=== PATIENT | male | born 1990 | race Two or more races ===

== ENCOUNTER 2021-06-12 20:09 | Emergency (ER) | payer OTHER ==
[~2021-06-12] VITALS: Ht 162.6 cm; Wt 83.9 kg
[2021-06-12] MEDS ORDERED: IOHEXOL 350 MG/ML 100ML IJ ONE (22:56)
[2021-06-12] MEDS ORDERED: ONDANSETRON HCL 4 MG/2 ML VIAL IV ONE (23:00)
[2021-06-12] MEDS ORDERED: MORPHINE SULFATE 4 MG/ML SYR/VIAL IV ONE (23:00)
[2021-06-12] MEDS ORDERED: TETANUS-DIPTH-ACEL PERTUSSIS 0.5ML SYR Tdap IM ONE (23:30)
[2021-06-13] MEDS ORDERED: LIDOCAINE 1%HCL (LOCAL ANESTH) 10 ML MDV ONE (01:18)
[2021-06-13] MEDS: MORPHINE SULFATE 4 MG/ML SYR/VIAL IV SCH ×2 (02:32→06:00)
[2021-06-13] MEDS ORDERED: HYDROmorphone HCL 2 MG/ML VL/or syr IV ONE (03:00)
[2021-06-13] MEDS ORDERED: ONDANSETRON HCL 4 MG/2 ML VIAL IV ONE (03:00)
[2021-06-13 03:32] VITALS: BP 119/91
[2021-06-13] MEDS ORDERED: KETAMINE 50mg/ML 10ml Vial (500mg/10ml) IV ONE (04:15)
== END 2021-06-13 07:11 | disposition home or self-care (01) ==
LOC: ER 20:09 → EDBD 20:09 → ER 06-13 07:04
DX: S52.591A Other fractures of lower end of right radius, initial encounter for closed fracture (principal); S52.601A Unspecified fracture of lower end of right ulna, initial encounter for closed fracture; S81.012A Laceration without foreign body, left knee, initial encounter; R51.9 Headache, unspecified; V48.9XXA Unspecified car occupant injured in noncollision transport accident in traffic accident, initial encounter; Y93.89 Activity, other specified; Y92.89 Other specified places as the place of occurrence of the external cause; Y99.8 Other external cause status
CPT/HCPCS: 12002; 25605; 70450; 71045; 71260; 72125; 73100; 73110; 73130; 73562; 74177; 90471; 90715; 93005; 96374; 96375; 96376; 99152; 99285; J1170; J2001; J2270; J2405; Q9967